=== PATIENT | female | born 1960 | race Caucasian/White ===

== ENCOUNTER 2021-01-01 13:04 | Outpatient (REF) | payer OTHER, SELFPAY ==
[2021-01-01 15:09] LABS: Thyroid Stimulating Hormone 1.15 uIU/mL (0.32-4.0)
[2021-01-03 03:17] LABS: T3 Uptake 30 % (22-35)
[2021-01-06 12:42] LABS: Estrogen 61.4 pg/mL
[2021-01-06 18:56] LABS: Progesterone <0.1 ng/mL
== END 2021-01-01 13:05 | disposition home or self-care (01) ==
LOC: HO.LAB 13:04
PROVIDERS: PCP Internal Medicine; Visit Provider Psychiatry & Neurology Neurology
DX: D35.2 Benign neoplasm of pituitary gland (principal)
CPT/HCPCS: 36415; 82672; 84144; 84146; 84436; 84443; 84479